=== PATIENT | female | born 1975 | race Asian ===

== ENCOUNTER 2017-12-02 05:20 | Day surgery (SDC) | payer BC ==
[2017-11-25 10:04] LABS: HEMATOCRIT 40.6 % (36.0-47.0); HEMOGLOBIN 13.6 g/dL (12.0-15.5); MEAN CORPUSCULAR HEMOGLOBIN 29.3 pg (27.0-33.4); MEAN CORPUSCULAR HGB CONC 33.6 g/dL (32.0-36.0); MEAN CORPUSCULAR VOLUME 87 fl (80-97); PLATELET COUNT 336 10^3/uL (150-450); RED BLOOD COUNT 4.65 10^6/uL (3.72-5.28); RED CELL DISTRIBUTION WIDTH 13.2 % (11.5-14.0); WHITE BLOOD COUNT 6.6 10^3/uL (4.0-10.5)
[2017-11-25 10:19] LABS: APPEARANCE,URINE CLEAR; BILIRUBIN,URINE NEGATIVE (NEGATIVE); COLOR,URINE STRAW; GLUCOSE, URINE NEGATIVE (NEGATIVE); KETONES,URINE NEGATIVE (NEGATIVE); URINE SPECIFIC GRAVITY 1.009
[2017-11-25 10:20] LABS: LEUKOCYTE ESTERASE,URINE NEGATIVE (NEGATIVE); NITRITE,URINE NEGATIVE (NEGATIVE); PROTEIN,URINE NEGATIVE (NEGATIVE); UROBILINOGEN,URINE NEGATIVE mg/dL (<2.0)
[2017-11-25 10:35] LABS: ALANINE AMINOTRANSFERASE 47 U/L (9-52); ALKALINE PHOSPHATASE 49 U/L (38-126); ANION GAP 9 (5-19); ASPARTATE AMINO TRANSFERASE 35 U/L (14-36); BILIRUBIN,DIRECT 0.1 mg/dL (0.0-0.4); BILIRUBIN,TOTAL 0.4 mg/dL (0.2-1.3); BLOOD UREA NITROGEN 18 mg/dL (7-20); CARBON DIOXIDE 29 mmol/L (22-30); CHLORIDE 103 mmol/L (98-107); GLUCOSE 93 mg/dL (75-110); POTASSIUM 4.3 mmol/L (3.6-5.0); SODIUM 141.4 mmol/L (137-145); TOTAL PROTEIN 7.6 g/dL (6.3-8.2)
[~2017-12-02 05:20] MED LIST: CEFAZOLIN 1 GM/D5W RTU 1 GM/50 ML RTUPB IV PRN; LACTATED RINGERS 1000 ML IV PRN; LIDOCAINE 0.5% INJ-PF (5 MG/ML) 50 ML SDV SUBCUT PRN
[2017-12-02] MEDS ORDERED: MIDAZOLAM 2 MG/2 ML INJ ONE (07:00)
[2017-12-02] MEDS ORDERED: FENTANYL CITRATE INJ/PF 100 MCG/2 ML AMPUL ONE (07:00)
[2017-12-02] MEDS ORDERED: ACETAMINOPHEN 100 ML IV ONE (07:01)
[2017-12-02] MEDS ORDERED: PROPOFOL INJ 200 MG/20 ML VIAL IV ONE (07:01)
[2017-12-02] MEDS ORDERED: BUPIVACAINE HCL 0.25 % INJ/PF (2.5 MG/1 ML) 30 ML VIAL ONE (07:24)
[2017-12-02] MEDS ORDERED: METHYLENE BLUE 50 MG/10 ML AMPULE ONE (07:24)
[2017-12-02] MEDS ORDERED: MEPERIDINE HCL/PF INJ 25 MG/1 ML DISP.SYRIN IV PRN (08:21)
[2017-12-02] MEDS ORDERED: MORPHINE SULFATE 10 MG/ML INJ IV PRN (08:21)
[2017-12-02] MEDS ORDERED: DIPHENHYDRAMINE HCL 50 MG/ML VIAL IV PRN (08:21)
[2017-12-02] MEDS ORDERED: PROMETHAZINE HCL INJ 25 MG/1 ML VIAL IV PRN ×2 (08:21→09:22)
[2017-12-02] MEDS ORDERED: FENTANYL CITRATE INJ/PF 100 MCG/2 ML AMPUL IV PRN ×3 (08:21)
[2017-12-02] MEDS ORDERED: OXYCODONE-ACETAMINOPHEN 5-325 MG TABLET PO PRN ×2 (09:21→09:22)
[2017-12-02 10:41] VITALS: BP 111/72
--- NOTE | 2017-12-02 11:09 | OPERATIVE REPORT E ---
Operative Report NAME: SHAISTA LLOYD : 1975 AGE: 42Y DATE OF SURGERY: 12/02/2017 ROOM: PREOPERATIVE DIAGNOSIS: Pelvic pain and infertility. POSTOPERATIVE DIAGNOSIS: Normal female anatomy. OPERATION: D and C, laparoscopy, attempted chromotubation. SURGEON: JASPER BLACKBURN M.D. ANESTHESIA: General and 0.25% Marcaine. ESTIMATED BLOOD LOSS: Negligible. PERTINENT HISTORY AND OPERATIVE FINDINGS: This is a 42-year-old female who had been having trouble with pelvic pain and also had been trying to get with no success. At the time of surgery, the vagina *------* appeared to be normal. The cervix appeared to be normal. The uterus appeared to be normal. The tubes and ovaries appeared to be normal. The bowel both large and small appeared to be normal. The appendix was normal. The liver and gallbladder appeared to be normal. OPERATIVE PROCEDURE: The patient was brought into the OR, placed on a table in a supine position. She was then inducted under general anesthesia. Following this, she was re-positioned into dorsal lithotomy position, prepped and draped in a sterile fashion. The bladder was drained about 75 mL of clear yellow urine and a pelvic under anesthesia was performed. Bellamy speculum was inserted. The cervix was grasped on its anterior lip with a single-tooth tenaculum. It was sounded. It was dilated with Bahena dilators. Then using a small curette a specimen was obtained from the endometrium. This terminated the D and C part. A HUMI uterine catheter was inserted. The balloon was filled up with 5 mL of saline. The bivalve speculum was removed. Attention was turned toward the abdominal wall. A Veress needle was introduced umbilically, carried through the various layers until the abdominal cavity was entered. Upon entering the abdominal cavity, a drop of saline was placed on the Veress needle. The abdomen was picked up, the saline easily egressed into the abdominal cavity. The Veress needle was then hooked up to CO2 with low pressure. It was then switched over to high pressure. The opening pressure was 5 cm of water. She had approximately 2.5 liters of CO2 injected to a pressure of 15 cm of water. The Veress needle was removed. A small incision was made infra-umbilically through this incision. A trocar and sleeve were inserted, and the trocar was removed, and through a sleeve, a laparoscope was inserted. A second incision was made suprapubically. Through the incision, a trocar and sleeve were inserted. The trocar was removed and through the sleeve a probe was inserted. The contents of the pelvis were then visualized and recorded. Attention was then turned to the HUMI chromotubation. We had a dye and 200 mL of saline. We had 50 mL of this in a syringe. Slowly and gently, we tried to insufflate the tubes. We were unable to get any dye through the tubes at this point in time. We had pushed about 20 mL with no results. We were noticing that it was coming back out the vagina. With this in mind, we turned our attention back to the pelvis. The HUMI insufflator was removed. After deflating it, it was then reinserted, re-inflated. Gloves were changed. We went back to the abdomen. We injected another 20 mL of the diluted methylene blue solution. Once again, there was no evidence of the dye going into the tubes, and once again, it came back out through the vagina. It was felt at this point in time not to try to keep pushing any more methylene blue. So, this was terminated. At this point in time, other structures in the abdomen, the appendix, the liver, the gallbladder were visualized and video recorded as was the bowel. This terminated procedure. The sleeve suprapubically was removed. There was no evidence of active bleeding. The CO2 was allowed to escape. Having allowed this to happen, the upper sleeve was removed. The patient had approximately 3 mL of 0.25% Marcaine injected in both incisions. The upper incision, the fascia was closed with interrupted 0 Vicryl. In the lower incision, the fascia was closed also with 0 Vicryl. The subumbilical incision skin was closed with a subcuticular using 4-0 Prolene. The suprapubic incision was closed using interrupted 4-0 Prolene. Attention was turned then back down to the pelvis. The HUMI manipulator chromotubator was removed. The bivalve speculum was inserted. The bivalve speculum was inserted. There was no evidence of any active bleeding. She did have some methylene blue in the vagina. This was removed with a latex sponge. This terminated procedure. Anesthesia was turned off. The patient was placed in a supine position and transferred to the recovery room in satisfactory condition. DICTATING PHYSICIAN: JASPER BLACKBURN M.D. 1949M 26 PHY#: [id number] ID: [id number] JOB#: [id number] ACCT: [id number] cc:JASPER BLACKBURN M.D. >
[2017-12-02] MEDS ORDERED: GLYCOPYRROLATE INJ 0.4 MG/2 ML VIAL ONE (14:29)
[2017-12-02] MEDS ORDERED: LIDOCAINE 2% INJ-PF (20 MG/ML) 2 ML AMPUL ONE (14:29)
[2017-12-02] MEDS ORDERED: NEOSTIGMINE METHYLSULFATE 10 MG/10 ML VIAL ONE (14:29)
[2017-12-02] MEDS ORDERED: ROCURONIUM BROMIDE INJ 50 MG/5 ML VIAL IV ONE (14:29)
[2017-12-02] MEDS ORDERED: DEXAMETHASONE SOD PHOSPHATE INJ 4 MG/1 ML VIAL ONE (14:29)
[2017-12-02] MEDS ORDERED: ONDANSETRON HCL INJ/PF 4 MG/2 ML SDV ONE (14:29)
== END 2017-12-02 10:40 | disposition home or self-care (01) ==
LOC: OROUT 05:20
PROVIDERS: ATTEND Obstetrics & Gynecology
PROC: 0UDB7ZX Extraction of Endometrium, Via Natural or Artificial Opening, Diagnostic (ICD-10-PCS; principal; 2017-12-02 07:30)
DX: N97.1 Female infertility of tubal origin (principal); N84.0 Polyp of corpus uteri; R10.2 Pelvic and perineal pain; N93.8 Other specified abnormal uterine and vaginal bleeding
CPT/HCPCS: 36415; 85027; 81025; 80053; 81001; 88162; 88305 ×2; 58120; 49320; 58350; J2250; J0690; J3490 ×2; J1100; J3010; J2405; J2704; J0131; Q9968; 790

== ENCOUNTER 2020-03-06 15:14 | Emergency (ER) | payer OTHER, BC ==
[2020-03-06] MEDS ORDERED: HYDROCODONE/ACETAMINOPHEN 5-325 MG TABLET PO ONE (16:29)
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
[2020-03-06 18:20] VITALS: BP 135/82
--- NOTE | 2020-03-06 20:42 | EKG REPORT ---
SEVERITY:- NORMAL ECG - SINUS RHYTHM : Confirmed by: Parag Bello MD 06-Mar-2020 20:42:17
== END 2020-03-06 18:25 | disposition home or self-care (01) ==
LOC: ER 15:14
DX: S16.1XXA Strain of muscle, fascia and tendon at neck level, initial encounter (principal); M54.5 Low back pain; M54.2 Cervicalgia; R07.89 Other chest pain; V49.50XA Passenger injured in collision with unspecified motor vehicles in traffic accident, initial encounter; M25.50 Pain in unspecified joint; I10 Essential (primary) hypertension
CPT/HCPCS: 71046; 72110; 72125; 93005; 93010; 99284